=== PATIENT | female | born 1945 | race Caucasian/White ===

== ENCOUNTER 2019-10-06 08:35 | Emergency (ER) | payer MEDICARE, OTHER ==
[~2019-10-06] VITALS: Ht 172.7 cm; Wt 61.2 kg
[~2019-10-06 08:35] MED LIST: HYDROCHLOROTHIA25 MG ORAL; POTASSIUM CHLO10 ME2 PO
[2019-10-06] MEDS ORDERED: MIRALAX17 G2 ORAL (08:46)
[2019-10-06 08:58] VITALS: BP 161/79
--- NOTE | 2019-10-06 09:26 | Emergency Room Report ---
History of Present Illness General Chief Complaint: General Complaint Source: Patient Present Illness HPI Patient is a 74-year-old female who presents after increased constipation. Patient had decreased bowel movements over the past 2 weeks. She had recently been given mag citrate as well as GoLYTELY. She reportedly had not been vomiting. Had not been having any increased pain. She apparently had been more constipated. Prior history of developmental delay. Allergies: Coded Allergies: No Known Allergies (Unverified , 09/23/15) COVID-19 Screening Contact w/high risk pt: No Experienced COVID-19 symptoms?: No COVID-19 Testing performed [employer]: No Patient History Past Medical History: see triage record Reviewed Nursing Documentation: PMH: Agreed; PSxH: Agreed Nursing Documentation-PMH Past Medical History: No History, Except For Hx Cardiac Problems: No Hx Hypertension: Yes Hx Cancer: No Hx Neurological Problems: No Review of Systems All Other Systems: negative except mentioned in HPI Physical Exam Vital Signs Date Time Temp Pulse Resp B/P (MAP) Pulse Ox O2 Delivery O2 Flow Rate FiO2 10/06/19 08:40 98.4 93 16 161/79 (106) 100 Room Air Sp02 EP Interpretation: reviewed, normal General Appearance: normal inspection, well appearing, no apparent distress, alert, GCS 15 Head: atraumatic ENT: normal ENT inspection, hearing grossly normal, normal voice Neck: normal inspection, full range of motion, supple, no bony tend Respiratory: normal inspection, lungs clear, normal breath sounds, no respiratory distress, no retraction, no wheezing Cardiovascular #1: regular rate, rhythm, no edema Gastrointestinal: normal inspection, normal bowel sounds, non tender, soft, no guarding, no hernia Genitourinary: no CVA tenderness Musculoskeletal: normal inspection, back normal, normal range of motion, digits /nails normal Neurologic: alert, motor strength/tone normal, cast iron dipper III-XII nml as tested, oriented x3, sensory intact, responsive, speech normal, normal inspection Psychiatric: normal inspection, judgement/insight normal, mood/affect normal Medical Decision Making ER Course Patient presented for decreased bowel movements. Differential diagnosis include was not limited to fecal impaction, bowel obstruction, among others. KUB interpreted by me showed nonspecific bowel gas pattern without evident obstruction. There was air noted to the rectum. Patient was given an enema. Patient appears to be stable for outpatient management. She advised to follow- up with primary care physician for recheck. Patient is to return if she begins having persistent vomiting fever or other concerns. Last Vital Signs Date Time Temp Pulse Resp B/P (MAP) Pulse Ox O2 Delivery O2 Flow Rate FiO2 10/06/19 08:58 93 16 Room Air 10/06/19 08:58 98.4 161/79 100 Status: improved Disposition: HOME, SELF-CARE Condition: Stable Sukhdev Munoz MD Oct 06, 2019 09:26
[2019-10-06] MEDS ORDERED: Fleet's Enema 133ml RECTAL ONE (09:30)
[2019-10-06] MEDS ORDERED: FLEET ENEMA133 ML RECTAL ×2 (09:31→10:16)
[2019-10-06 10:16] VITALS: BP 128/74
--- NOTE | 2019-10-06 10:43 | Diagnostic Imaging Report ---
Indication: Reason For Exam: PAIN Technique: XRAY Abdomen 1v Comparison: None. Findings: Single view the abdomen demonstrates a nonobstructive bowel gas pattern. Clips are present in the right upper quadrant from previous surgery. Degenerative changes are noted in the lower lumbar spine. No free fluid or gross free air. No evidence of free fluid. Impression: Previous cholecystectomy. Degenerative change in the spine. Otherwise negative.
== END 2019-10-06 10:16 | disposition home or self-care (01) ==
LOC: EMR 10:10
DX: K59.00 Constipation, unspecified (principal); I10 Essential (primary) hypertension; Z90.49 Acquired absence of other specified parts of digestive tract
CPT/HCPCS: 74018; 99283